=== PATIENT | female | born 1945 | race Caucasian/White ===

== ENCOUNTER 2017-08-01 17:49 | Inpatient (IN) | payer OTHER, MEDICAID ==
[~2017-08-01] VITALS: Ht 149.9 cm; Wt 86.2 kg
[~2017-08-01 17:49] MED LIST: ACT35 PO; ERYT333T76 PO; ESOM40CA PO; EZET1TAB29 PO; GLIM4TAB PO; GUAI100L32 PO; LORA10TA2 PO; LOT5 PO; NEU300 PO; OMEG1CAP55 PO; PIOG30TA70 PO; SITA100T7 PO; [UNRECOGNIZED DRUG - CODE] IH
[2017-08-01] MEDS ORDERED: NACL 0.9% 1,000 ML IV ONE (17:51)
[2017-08-01] MEDS ORDERED: NACL 0.9% 1,000 ML IV SCH ×2 (17:51→21:00)
[2017-08-01] MEDS ORDERED: ONDANSETRON HCL 4 MG/2 ML VIAL IVP ONE (18:00)
[2017-08-01] MEDS ORDERED: MORPHINE 4 MG/ML INJ. SYRINGE IVP ONE ×2 (18:00→21:00)
[2017-08-01 18:04] VITALS: BP_SYST 159
[2017-08-01 18:37] LABS: BASOPHILS # (AUTO) 0.5 K/uL (0.0-0.2); BASOPHILS % (AUTO) 3.9 % (0.0-2.0); EOSINOPHILS # (AUTO) 0.1 K/uL (0.0-0.4); EOSINOPHILS % (AUTO) 0.9 % (0.0-4.0); HEMATOCRIT 45.8 % (36-48); HEMOGLOBIN 15.5 g/dL (12.0-16.0); LYMPHOCYTES # (AUTO) 3.8 K/uL (1.0-5.5); LYMPHOCYTES % (AUTO) 30.1 % (20.5-51.5); MEAN CORPUSCULAR HEMOGLOBIN 33 pg (27-31); MEAN CORPUSCULAR HGB CONC 34 % (32-36); MEAN CORPUSCULAR VOLUME 97 fL (79.0-98.0); MONOCYTES # (AUTO) 0.5 K/uL (0.0-1.0); MONOCYTES % (AUTO) 3.9 % (1.7-9.3); NEUTROPHILS # (AUTO) 7.8 K/uL (1.8-7.7); NEUTROPHILS % (AUTO) 61.2 % (40.0-70.0); PLATELET COUNT (AUTO) 271 K/uL (130-430); RED BLOOD CELL COUNT(AUTO) 4.71 MIL/uL (4.2-6.2); WHITE BLOOD COUNT (AUTO) 12.7 K/uL (4.8-10.8)
[2017-08-01 18:41] LABS: BILIRUBIN,URINE NEGATIVE (NEGATIVE); BLOOD, URINE NEGATIVE (NEGATIVE); CLARITY/URINE CLEAR (CLEAR); COLOR,URINE YELLOW (YELLOW); GLUCOSE,URINE 1+ (NEGATIVE); KETONES,URINE NEGATIVE (NEGATIVE); LEUKOCYTE ESTERASE ,URINE TRACE (NEGATIVE); NITRITE, URINE NEGATIVE (NEGATIVE); PROTEIN URINE TRACE (NEGATIVE); UROBILINOGEN,URINE 0.2 (0.2-1.0)
[2017-08-01 18:43] LABS: BACTERIA,URINE FEW /HPF (None Seen); RBC,URINE 0-3 /HPF (0-3)
[2017-08-01 18:48] LABS: ANION GAP 11 (5-15); CALCIUM 9.2 mg/dL (8.4-11.0); CHLORIDE 98 mmol/L (98-107); CREATININE 1.03 mg/dL (0.55-1.30); GLUCOSE 266 mg/dL (70-99); SODIUM SERUM 136 mmol/L (136-145); UREA NITROGEN, BLOOD 28 mg/dL (8-21)
[2017-08-01 18:49] LABS: INR 0.9 (0.8-1.2); PROTHROMBIN TIME 9.6 SECS (9.5-12.5)
[2017-08-01 18:59] LABS: ALANINE AMINOTRANSFERASE 35 U/L (12-78); ALBUMIN 3.9 g/dL (3.4-4.8); AMYLASE 59 U/L (0-100); ASPARTATE AMINOTRANSFERASE 17 U/L (10-37); LIPASE 102 U/L (73-393); TOTAL BILIRUBIN 0.6 mg/dL (0.0-1.0)
[2017-08-01] MEDS ORDERED: metroNIDAZOLE 500 mg/NS 100 ML IV ONE (19:15)
[2017-08-01] MEDS ORDERED: cefTRIAXone 2 GM VIAL ONE (19:42)
[2017-08-01] MEDS ORDERED: NPH,100V SUBCUT (20:12)
[2017-08-01] MEDS ORDERED: ISO10 PO (20:12)
[2017-08-01] MEDS ORDERED: LOSA25TA3 PO (20:12)
[2017-08-01] MEDS ORDERED: ALL300 PO (20:12)
[2017-08-01] MEDS ORDERED: DOCU-144 PO (20:12)
[2017-08-01] MEDS ORDERED: MONT10TA25 PO (20:12)
[2017-08-01] MEDS ORDERED: LEVO150T PO (20:12)
[2017-08-01] MEDS ORDERED: NEU400 PO (20:12)
[2017-08-01] MEDS ORDERED: OMEP10SU PO (20:12)
[2017-08-01] MEDS ORDERED: LIP80 PO (20:12)
[2017-08-01] MEDS ORDERED: MULT-194 PO (20:12)
[2017-08-01] MEDS ORDERED: MORPHINE 4 MG/ML INJ. SYRINGE ONE (20:24)
[2017-08-01 21:21] VITALS: BP_SYST 141
[2017-08-01] MEDS ORDERED: ONDANSETRON HCL 4 MG/2 ML VIAL IVP PRN (22:15)
[2017-08-01] MEDS ORDERED: MORPHINE 4 MG/ML INJ. SYRINGE IVP PRN (22:15)
[2017-08-01] MEDS ORDERED: LORazepam 2 MG/ML VIAL IVP PRN (22:15)
[2017-08-01] MEDS: D5/0.45 NS 1,000 ML IV SCH (22:56)
[2017-08-02 01:14] VITALS: BP_SYST 122
[2017-08-02] MEDS: MORPHINE 4 MG/ML INJ. SYRINGE IVP PRN ×3 (01:23→09:18)
[2017-08-02 06:19] LABS: BASOPHILS # (AUTO) 0.1 K/uL (0.0-0.2); BASOPHILS % (AUTO) 0.8 % (0.0-2.0); EOSINOPHILS # (AUTO) 0.1 K/uL (0.0-0.4); EOSINOPHILS % (AUTO) 1.1 % (0.0-4.0); HEMATOCRIT 43.5 % (36-48); HEMOGLOBIN 14.3 g/dL (12.0-16.0); LYMPHOCYTES # (AUTO) 2.1 K/uL (1.0-5.5); LYMPHOCYTES % (AUTO) 22.7 % (20.5-51.5); MEAN CORPUSCULAR HEMOGLOBIN 32 pg (27-31); MEAN CORPUSCULAR HGB CONC 33 % (32-36); MEAN CORPUSCULAR VOLUME 98 fL (79.0-98.0); MONOCYTES # (AUTO) 0.6 K/uL (0.0-1.0); NEUTROPHILS # (AUTO) 6.5 K/uL (1.8-7.7); NEUTROPHILS % (AUTO) 69.4 % (40.0-70.0); PLATELET COUNT (AUTO) 262 K/uL (130-430); RED BLOOD CELL COUNT(AUTO) 4.42 MIL/uL (4.2-6.2); RED CELL DISTRIBUTION WIDTH 13.8 % (9.0-15.0)
[2017-08-02 07:00] LABS: ALANINE AMINOTRANSFERASE 34 U/L (12-78); ALBUMIN 3.4 g/dL (3.4-4.8); ANION GAP 7 (5-15); ASPARTATE AMINOTRANSFERASE 14 U/L (10-37); CALCIUM 9.1 mg/dL (8.4-11.0); CHLORIDE 96 mmol/L (98-107); CREATININE 1.02 mg/dL (0.55-1.30); GLUCOSE 292 mg/dL (70-99); POTASSIUM 4.8 mmol/L (3.5-5.1); SODIUM SERUM 135 mmol/L (136-145); TOTAL BILIRUBIN 0.5 mg/dL (0.0-1.0); UREA NITROGEN, BLOOD 22 mg/dL (8-21)
[2017-08-02 07:06] LABS: WHITE BLOOD COUNT (AUTO) 9.4 K/uL (4.8-10.8)
[2017-08-02 07:16] LABS: C-REACTIVE PROTEIN QUANT < 0.2 mg/dL (0-0.5)
[2017-08-02 07:47] LABS: ERYTHROCYTE SEDIMENTATION RATE 14 MM/HR (0-20)
[2017-08-02] MEDS: D5/0.45 NS 1,000 ML IV SCH (09:50)
[2017-08-02] MEDS ORDERED: KETOROLAC TROMETHAMINE 30 MG VIAL IVP PRN (10:00)
[2017-08-02] MEDS ORDERED: fentaNYL CITRATE/PF 100 MCG/2 ML AMP IVP PRN ×2 (10:00)
[2017-08-02] MEDS ORDERED: ONDANSETRON HCL 4 MG/2 ML VIAL IVP PRN ×2 (10:00→15:30)
[2017-08-02 12:56] VITALS: BP_SYST 148
[2017-08-02 14:22] VITALS: BP_SYST 148
[2017-08-02] MEDS ORDERED: BUPIVACAINE LIPOSOME/PF 266 MG/20 ML VIAL INFIL ONE (14:41)
[2017-08-02] MEDS ORDERED: ePHEDrine sulfate 50 MG/ML VIAL IVP ONE (15:45)
[2017-08-02] MEDS ORDERED: SEVOFLURANE 15 MIN GAS INH ONE (15:45)
[2017-08-02] MEDS ORDERED: PROPOFOL 200MG/ 20ML VIAL (DIPRIVAN) IV ONE (15:45)
[2017-08-02] MEDS ORDERED: fentaNYL CITRATE/PF 100 MCG/2 ML AMP IVP ONE (15:45)
[2017-08-02] MEDS ORDERED: MIDAZOLAM HCL 5 MG/ML VIAL (VERSED) IV ONE (15:45)
[2017-08-02] MEDS ORDERED: GLYCOPYRROLATE 0.2 MG/ML VIAL IJ ONE (15:45)
[2017-08-02] MEDS ORDERED: ROCURONIUM BROMIDE 10 MG/ML (ZEMURON) IV ONE (15:45)
[2017-08-02] MEDS ORDERED: NS 1000 ML BAG IV ONE ×2 (15:45)
[2017-08-02] MEDS ORDERED: BUPIVACAINE /PF 0.5% 30 ML VIAL INJ ONE (15:45)
[2017-08-02] MEDS ORDERED: KETOROLAC TROMETHAMINE 30 MG VIAL IVP ONE (15:45)
[2017-08-02] MEDS ORDERED: LIDOCAINE PF 2%, 200 MG/10 ML AMPUL.LUER (EPIDURAL) INJ ONE (15:45)
[2017-08-02] MEDS: fentaNYL CITRATE/PF 100 MCG/2 ML AMP ONE ×2 (15:50→15:56)
[2017-08-02] MEDS: NACL 0.9% 1,000 ML IV SCH (16:47)
[2017-08-02 16:58] VITALS: BP_SYST 124
[2017-08-02] MEDS: CEFAZOLIN 2 GM IVPB PREMIX 50 ML IV SCH ×2 (17:09→23:15)
[2017-08-02] MEDS: metroNIDAZOLE 500 mg/NS 100 ML IV SCH (18:20)
[2017-08-02 19:20] VITALS: BP_SYST 140
[2017-08-02] MEDS: cefTRIAXone 1 GM IVPB PREMIX 50 ML IV SCH (20:05)
[2017-08-02] MEDS: HYDROmorphone 2 MG/ML VIAL IVP PRN ×2 (20:06→23:24)
[2017-08-03] VITALS: BP_SYST 140
[2017-08-03] MEDS: NACL 0.9% 1,000 ML IV SCH (01:30)
[2017-08-03] MEDS: metroNIDAZOLE 500 mg/NS 100 ML IV SCH (01:30)
[2017-08-03] MEDS: HYDROmorphone 2 MG/ML VIAL IVP PRN ×4 (04:54→19:39)
[2017-08-03 06:43] LABS: BASOPHILS # (AUTO) 0.1 K/uL (0.0-0.2); BASOPHILS % (AUTO) 0.6 % (0.0-2.0); EOSINOPHILS # (AUTO) 0.1 K/uL (0.0-0.4); EOSINOPHILS % (AUTO) 0.6 % (0.0-4.0); HEMATOCRIT 40.8 % (36-48); HEMOGLOBIN 13.6 g/dL (12.0-16.0); LYMPHOCYTES % (AUTO) 19.5 % (20.5-51.5); MEAN CORPUSCULAR HEMOGLOBIN 33 pg (27-31); MEAN CORPUSCULAR HGB CONC 34 % (32-36); MEAN CORPUSCULAR VOLUME 97 fL (79.0-98.0); MONOCYTES # (AUTO) 0.6 K/uL (0.0-1.0); MONOCYTES % (AUTO) 5.9 % (1.7-9.3); NEUTROPHILS # (AUTO) 7.2 K/uL (1.8-7.7); NEUTROPHILS % (AUTO) 73.4 % (40.0-70.0); PLATELET COUNT (AUTO) 243 K/uL (130-430); RED CELL DISTRIBUTION WIDTH 13.9 % (9.0-15.0)
[2017-08-03 07:15] LABS: ANION GAP 8 (5-15); CHLORIDE 101 mmol/L (98-107); CREATININE 0.81 mg/dL (0.55-1.30); GLUCOSE 272 mg/dL (70-99); POTASSIUM 4.3 mmol/L (3.5-5.1); SODIUM SERUM 138 mmol/L (136-145); UREA NITROGEN, BLOOD 15 mg/dL (8-21)
[2017-08-03 07:27] LABS: ALANINE AMINOTRANSFERASE 36 U/L (12-78); ALBUMIN 3.3 g/dL (3.4-4.8); ASPARTATE AMINOTRANSFERASE 31 U/L (10-37); TOTAL BILIRUBIN 0.3 mg/dL (0.0-1.0)
[2017-08-03 08:20] VITALS: BP_SYST 144
[2017-08-03 12:14] VITALS: BP_SYST 141
[2017-08-03 16:05] VITALS: BP_SYST 129
[2017-08-03] MEDS: cefTRIAXone 1 GM IVPB PREMIX 50 ML IV SCH (19:38)
[2017-08-03 20:00] VITALS: BP_SYST 148
[2017-08-04 01:14] VITALS: BP_SYST 146
[2017-08-04] MEDS: HYDROmorphone 2 MG/ML VIAL IVP PRN ×3 (03:11→12:25)
[2017-08-04 06:23] LABS: BASOPHILS # (AUTO) 0.1 K/uL (0.0-0.2); BASOPHILS % (AUTO) 0.7 % (0.0-2.0); EOSINOPHILS # (AUTO) 0.1 K/uL (0.0-0.4); EOSINOPHILS % (AUTO) 1.2 % (0.0-4.0); HEMATOCRIT 40.6 % (36-48); HEMOGLOBIN 13.7 g/dL (12.0-16.0); LYMPHOCYTES # (AUTO) 1.6 K/uL (1.0-5.5); LYMPHOCYTES % (AUTO) 15.8 % (20.5-51.5); MEAN CORPUSCULAR HEMOGLOBIN 33 pg (27-31); MEAN CORPUSCULAR HGB CONC 34 % (32-36); MEAN CORPUSCULAR VOLUME 97 fL (79.0-98.0); MONOCYTES # (AUTO) 0.7 K/uL (0.0-1.0); MONOCYTES % (AUTO) 6.7 % (1.7-9.3); NEUTROPHILS # (AUTO) 7.8 K/uL (1.8-7.7); NEUTROPHILS % (AUTO) 75.6 % (40.0-70.0); PLATELET COUNT (AUTO) 210 K/uL (130-430); RED BLOOD CELL COUNT(AUTO) 4.17 MIL/uL (4.2-6.2); RED CELL DISTRIBUTION WIDTH 13.8 % (9.0-15.0); WHITE BLOOD COUNT (AUTO) 10.3 K/uL (4.8-10.8)
[2017-08-04 06:38] LABS: ANION GAP 8 (5-15); C-REACTIVE PROTEIN QUANT 1.8 mg/dL (0-0.5); CALCIUM 8.6 mg/dL (8.4-11.0); CHLORIDE 95 mmol/L (98-107); CREATININE 0.76 mg/dL (0.55-1.30); GLUCOSE 278 mg/dL (70-99); SODIUM SERUM 131 mmol/L (136-145); UREA NITROGEN, BLOOD 11 mg/dL (8-21)
[2017-08-04 07:29] LABS: ERYTHROCYTE SEDIMENTATION RATE 18 MM/HR (0-20)
[2017-08-04 08:00] VITALS: BP_SYST 154
[2017-08-04 12:00] VITALS: BP_SYST 127
[2017-08-04 16:49] VITALS: BP_SYST 128
[2017-08-04] MEDS ORDERED: IBUP-1969 PO (18:08)
[2017-08-04 19:31] VITALS: BP_SYST 128
[2017-08-04 19:45] VITALS: BP_SYST 129
== END 2017-08-04 20:00 | disposition home or self-care (01) | DRG 418 ==
LOC: SED 17:49 → SMU 20:57 → STU 08-03 05:51 → SMU 08-03 13:44
PROVIDERS: ADMIT Preventive Medicine Preventive Medicine/Occupational Environmental Medicine; ATTEND Preventive Medicine Preventive Medicine/Occupational Environmental Medicine
PROC: 0FT44ZZ Resection of Gallbladder, Percutaneous Endoscopic Approach (ICD-10-PCS; principal; 2017-08-02 13:00)
DX: K80.00 Calculus of gallbladder with acute cholecystitis without obstruction (principal); E87.1 Hypo-osmolality and hyponatremia; E11.65 Type 2 diabetes mellitus with hyperglycemia; E03.9 Hypothyroidism, unspecified; I10 Essential (primary) hypertension; K21.9 Gastro-esophageal reflux disease without esophagitis; K59.00 Constipation, unspecified; K82.8 Other specified diseases of gallbladder; J45.909 Unspecified asthma, uncomplicated; D72.829 Elevated white blood cell count, unspecified; R00.0 Tachycardia, unspecified; Z88.6 Allergy status to analgesic agent; Z79.899 Other long term (current) drug therapy; Z86.73 Personal history of transient ischemic attack (TIA), and cerebral infarction without residual deficits; Z95.0 Presence of cardiac pacemaker
CPT/HCPCS: 36415; 71045; 76700-TC; 80048; 80053; 81000-TC; 82150-TC; 82550-TC; 83605; 83690-TC; 84484; 85025; 85610-TC; 85651-TC; 85730-TC; 86140; 87040-TC; 87081; 87086; 88304; 88341; 88342; 88361; 93005; 94010; 94760; 96361; 96365; 96367; 96375; 97110-GP; 97116-GP; 97530-GP; 99285; C9290; J0690; J0696; J1170; J1885; J2001; J2060; J2250; J2270; J2405; J2704; J3010; J3490; J7030; J7060

== ENCOUNTER 2020-04-05 15:28 | Emergency (ER) | payer OTHER, MEDICAID, SELFPAY ==
[~2020-04-05] VITALS: Ht 144.8 cm; Wt 81.6 kg
[~2020-04-05 15:28] MED LIST changes: -ACT35 PO; +ALEN10TA25 PO; +ALL300 PO; +BACL10TA PO; +CHOL500051 PO; +DOCU-144 PO; -ERYT333T76 PO; -ESOM40CA PO; -EZET1TAB29 PO; -GLIM4TAB PO; -GUAI100L32 PO; +IBUP-1969 PO; +INSU100V7 IJ; +INSU500I SQ; +ISO10 PO; +LEVO137T2 PO; +LEVO150T PO; +LIP80 PO; -LORA10TA2 PO; +LOSA25TA3 PO; -LOT5 PO; +MONT10TA27 PO; +NEU400 PO; -OMEG1CAP55 PO; +OMEP10SU2 PO; -PIOG30TA70 PO; -SITA100T7 PO; +TRAM100T34 PO; -[UNRECOGNIZED DRUG - CODE] IH
[2020-04-05 15:40] VITALS: BP_SYST 116; BP_SYST 125
[2020-04-05 16:47] LABS: BASOPHILS # (AUTO) 0.1 K/uL (0.0-0.2); EOSINOPHILS # (AUTO) 0.4 K/uL (0.0-0.4); EOSINOPHILS % (AUTO) 5.5 % (0.0-4.0); HEMATOCRIT 39.9 % (36-48); HEMOGLOBIN 13.5 g/dL (12.0-16.0); LYMPHOCYTES % (AUTO) 26.6 % (20.5-51.5); MEAN CORPUSCULAR HEMOGLOBIN 33 pg (27-31); MEAN CORPUSCULAR HGB CONC 34 % (32-36); MEAN CORPUSCULAR VOLUME 97 fL (79.0-98.0); MONOCYTES # (AUTO) 0.5 K/uL (0.0-1.0); MONOCYTES % (AUTO) 6.5 % (1.7-9.3); NEUTROPHILS # (AUTO) 4.6 K/uL (1.8-7.7); NEUTROPHILS % (AUTO) 60.4 % (40.0-70.0); PLATELET COUNT (AUTO) 244 K/uL (130-430); RED CELL DISTRIBUTION WIDTH 14.3 % (9.0-15.0); WHITE BLOOD COUNT (AUTO) 7.6 K/uL (4.8-10.8)
[2020-04-05 16:51] LABS: ANION GAP 10 (5-15); CALCIUM 9.2 mg/dL (8.4-11.0); CHLORIDE 100 mmol/L (98-107); CREATININE 1.21 mg/dL (0.55-1.30); GLUCOSE 123 mg/dL (70-99); POTASSIUM 3.8 mmol/L (3.5-5.1); SODIUM SERUM 136 mmol/L (136-145); UREA NITROGEN, BLOOD 15 mg/dL (8-21)
[2020-04-05 16:58] LABS: ALANINE AMINOTRANSFERASE 28 U/L (12-78); ALBUMIN 3.8 g/dL (3.4-4.8); ASPARTATE AMINOTRANSFERASE 23 U/L (10-37); LACTATE DEHYDROGENASE 211 U/L (81-234); TOTAL BILIRUBIN 0.2 mg/dL (0.0-1.0)
[2020-04-05 17:09] LABS: PROTHROMBIN TIME 10.2 SECS (9.5-12.5)
[2020-04-05] MEDS ORDERED: AZITHROMYCIN 500 MG in NS 250 ML IV ONE (17:15)
[2020-04-05 17:28] LABS: FIBRINOGEN 364 mg/dL (200-400)
[2020-04-05 17:44] LABS: C-REACTIVE PROTEIN QUANT < 0.2 mg/dL (0-0.5)
[2020-04-05] MEDS ORDERED: NACL 0.9% 2,000 ML IV ONE (17:45)
[2020-04-05 20:08] VITALS: BP_SYST 129
== END 2020-04-05 20:10 | disposition home or self-care (01) ==
LOC: SED 15:28
DX: J18.9 Pneumonia, unspecified organism (principal); E07.9 Disorder of thyroid, unspecified; K21.9 Gastro-esophageal reflux disease without esophagitis; I10 Essential (primary) hypertension; E11.9 Type 2 diabetes mellitus without complications; F17.200 Nicotine dependence, unspecified, uncomplicated; Z90.49 Acquired absence of other specified parts of digestive tract; Z88.6 Allergy status to analgesic agent; Z79.899 Other long term (current) drug therapy; Z79.4 Long term (current) use of insulin; Z20.822 Contact with and (suspected) exposure to COVID-19
CPT/HCPCS: 36600; 70360; 71045; 80053; 82550; 82728; 82803; 83605; 83615; 83880; 84484; 85025; 85379; 85384; 85610; 85730; 86140; 87040; 87426; 93005; 96365; 99285; J7030

== ENCOUNTER 2023-02-25 23:48 | Emergency (ER) | payer OTHER, MEDICAID ==
[~2023-02-25 23:48] MED LIST changes: +LOSA-412 PO; -LOSA25TA3 PO; +MONT-40 PO; -MONT10TA27 PO
[2023-02-25 23:53] VITALS: BP_SYST 92; PULSE 80; RESP 20; TEMP 91.2; O2SAT 92
[2023-02-25] MEDS ORDERED: DEXTROSE 50% JECT 50 ML DISP.SYRIN ONE (23:56)
[2023-02-26] MEDS ORDERED: DEXTROSE 50% JECT 50 ML DISP.SYRIN IVP ONE
[2023-02-26 02:29] LABS: BASOPHILS # (AUTO) 0.1 K/uL (0.0-0.2); BASOPHILS % (AUTO) 0.6 % (0.0-2.0); EOSINOPHILS # (AUTO) 0.1 K/uL (0.0-0.4); EOSINOPHILS % (AUTO) 0.8 % (0.0-4.0); HEMATOCRIT 42.7 % (36-48); HEMOGLOBIN 14.3 g/dL (12.0-16.0); LYMPHOCYTES # (AUTO) 1.3 K/uL (1.0-5.5); LYMPHOCYTES % (AUTO) 11.3 % (20.5-51.5); MEAN CORPUSCULAR HEMOGLOBIN 32 pg (27-31); MEAN CORPUSCULAR HGB CONC 33 % (32-36); MEAN CORPUSCULAR VOLUME 97 fL (79.0-98.0); MONOCYTES # (AUTO) 0.5 K/uL (0.0-1.0); MONOCYTES % (AUTO) 4.4 % (1.7-9.3); NEUTROPHILS # (AUTO) 9.9 K/uL (1.8-7.7); NEUTROPHILS % (AUTO) 82.9 % (40.0-70.0); PLATELET COUNT (AUTO) 225 K/uL (130-430); RED CELL DISTRIBUTION WIDTH 13.9 % (9.0-15.0)
[2023-02-26 02:56] LABS: ANION GAP 12 (5-15); CALCIUM 8.5 mg/dL (8.4-11.0); CARBON DIOXIDE 25 mmol/L (23-29); CHLORIDE 100 mmol/L (98-107); CREATININE 1.11 mg/dL (0.55-1.30); GLUCOSE 167 mg/dL (74-106); POTASSIUM 3.7 mmol/L (3.5-5.1); SODIUM SERUM 137 mmol/L (136-145); UREA NITROGEN, BLOOD 20 mg/dL (8-21)
[2023-02-26 03:30] LABS: BILIRUBIN,URINE NEGATIVE (NEGATIVE); BLOOD, URINE NEGATIVE (NEGATIVE); CLARITY/URINE CLEAR (CLEAR); COLOR,URINE YELLOW (YELLOW); GLUCOSE,URINE NEGATIVE (NEGATIVE); KETONES,URINE NEGATIVE (NEGATIVE); LEUKOCYTE ESTERASE ,URINE NEGATIVE (NEGATIVE); NITRITE, URINE NEGATIVE (NEGATIVE); PH,URINE 6.5 (5.0-8.0); PROTEIN URINE NEGATIVE (NEGATIVE); UROBILINOGEN,URINE 0.2 (0.2-1.0)
[2023-02-26 05:00] VITALS: BP_SYST 137; PULSE 64; RESP 16; TEMP 97.4; O2SAT 97
== END 2023-02-26 05:00 | disposition home or self-care (01) ==
LOC: SED 23:48
DX: R41.82 Altered mental status, unspecified (principal); E11.649 Type 2 diabetes mellitus with hypoglycemia without coma; K21.9 Gastro-esophageal reflux disease without esophagitis; I10 Essential (primary) hypertension; Z88.5 Allergy status to narcotic agent; Z79.899 Other long term (current) drug therapy
CPT/HCPCS: 36415; 71045; 80048; 81001; 81003; 82962; 83605; 85025; 87040; 87086; 93005; 96374; 99291